=== PATIENT | female | born 1990 | race Two or more races ===

== ENCOUNTER 2021-08-01 02:05 | Emergency (ER) | payer OTHER ==
[~2021-08-01] VITALS: Ht 162.6 cm; Wt 52.2 kg
[2021-08-01] MEDS ORDERED: ZOFRAN8 MG PO (05:53)
[2021-08-01] MEDS ORDERED: PEPCID AC20 MG PO (05:53)
== END 2021-08-01 06:03 | disposition home or self-care (01) ==
LOC: ER 02:05 → EDBD 02:25 → ER 02:25
DX: K52.89 Other specified noninfective gastroenteritis and colitis (principal)

== ENCOUNTER 2022-01-11 11:50 | Outpatient (CLI) | payer OTHER ==
[~2022-01-11 11:50] MED LIST: PEPCID AC20 MG PO; ZOFRAN8 MG PO
== END 2022-01-11 13:14 | disposition home or self-care (01) ==
LOC: LAB 11:50
PROVIDERS: ATTEND Internal Medicine Hematology & Oncology
DX: D50.8 Other iron deficiency anemias (principal); I10 Essential (primary) hypertension; D51.3 Other dietary vitamin B12 deficiency anemia; D68.8 Other specified coagulation defects

== ENCOUNTER 2022-03-09 13:01 | Outpatient (CLI) | payer OTHER | END 2022-03-09 13:08 | disposition home or self-care (01) | LOC: SONOGRAMA 13:01 | PROVIDERS: ATTEND Internal Medicine Hematology & Oncology | DX: E04.2 Nontoxic multinodular goiter (principal); D68.32 Hemorrhagic disorder due to extrinsic circulating anticoagulants; E56.1 Deficiency of vitamin K; D51.3 Other dietary vitamin B12 deficiency anemia; J30.9 Allergic rhinitis, unspecified ==

== ENCOUNTER 2022-03-17 10:21 | Outpatient (CLI) | payer OTHER | END 2022-03-17 14:13 | disposition home or self-care (01) | LOC: LAB 10:21 | PROVIDERS: ATTEND Internal Medicine Hematology & Oncology | DX: D50.8 Other iron deficiency anemias (principal); D68.32 Hemorrhagic disorder due to extrinsic circulating anticoagulants; E56.1 Deficiency of vitamin K; D51.3 Other dietary vitamin B12 deficiency anemia; J30.9 Allergic rhinitis, unspecified ==

== ENCOUNTER → 2022-05-25 11:32 | Outpatient (CLI) | payer OTHER | END | disposition home or self-care (01) | LOC: LAB 11:32 | PROVIDERS: ATTEND Internal Medicine Hematology & Oncology | DX: D68.62 Lupus anticoagulant syndrome (principal); E56.1 Deficiency of vitamin K; D51.3 Other dietary vitamin B12 deficiency anemia; J30.9 Allergic rhinitis, unspecified; D50.8 Other iron deficiency anemias; R79.9 Abnormal finding of blood chemistry, unspecified; I10 Essential (primary) hypertension; R74.02 Elevation of levels of lactic acid dehydrogenase [LDH]; K76.89 Other specified diseases of liver; D51.8 Other vitamin B12 deficiency anemias; D68.8 Other specified coagulation defects; D69.1 Qualitative platelet defects ==

== ENCOUNTER → 2022-06-17 09:57 | Outpatient (CLI) | payer OTHER | END | disposition home or self-care (01) | LOC: LAB 09:57 | PROVIDERS: ATTEND Internal Medicine Rheumatology | DX: M06.89 Other specified rheumatoid arthritis, multiple sites (principal); R76.8 Other specified abnormal immunological findings in serum; M32.9 Systemic lupus erythematosus, unspecified; M35.00 Sjogren syndrome, unspecified; L94.1 Linear scleroderma ==

== ENCOUNTER 2022-09-30 08:58 | Outpatient (CLI) | payer OTHER | END 2022-09-30 09:03 | disposition home or self-care (01) | LOC: LAB 08:58 | PROVIDERS: ATTEND Internal Medicine Hematology & Oncology | DX: D50.8 Other iron deficiency anemias (principal); R79.9 Abnormal finding of blood chemistry, unspecified; I10 Essential (primary) hypertension; R74.02 Elevation of levels of lactic acid dehydrogenase [LDH]; K76.89 Other specified diseases of liver; D68.8 Other specified coagulation defects; E56.1 Deficiency of vitamin K; D69.1 Qualitative platelet defects; E55.9 Vitamin D deficiency, unspecified; D68.32 Hemorrhagic disorder due to extrinsic circulating anticoagulants; D51.3 Other dietary vitamin B12 deficiency anemia; J30.9 Allergic rhinitis, unspecified ==

== ENCOUNTER → 2023-05-15 08:49 | Outpatient (CLI) | payer OTHER ==
[2023-05-15 10:09] LABS: HEMATOCRIT 37.9 % (36.0-45.00); HEMOGLOBIN 12.5 g/dL (12.0-15.00); MEAN CORPUSCULAR HEMOGLOBIN 28.7 pg (27.00-32.0); MEAN CORPUSCULAR HGB CONC 32.9 g/dl (32.0-36.0); PLATELET COUNT 287 K/uL (150-450); RED BLOOD COUNT 4.36 M/uL (4.00-6.00); RED CELL DISTRIBUTION WIDTH 13.4 % (11.5-14.5)
[2023-05-15 10:27] LABS: COL EPI 83 SECONDS (82-175)
[2023-05-15 10:43] LABS: INR 0.95; PARTIAL THROMBOPLASTIN TIME 25.6 SECONDS (22.0-34.0)
[2023-05-15 11:00] LABS: ALBUMIN 3.9 gm/dL (3.4-5.0); BILIRUBIN TOTAL 0.56 mg/dL (0.3-1.2); CREATININE SERUM 0.77 mg/dL (0.55-1.02); GFR 86.33; GLOBULINA 3.8 G/DL (2.4-3.5); POTASSIUM 4.04 mEq/L (3.5-5.1); TOTAL PROTEIN 7.7 gm/dL (6.4-8.2)
[2023-05-15 13:10] LABS: MANUAL PLATELET COUNT 470
[2023-05-15 13:13] LABS: PLATELET ESTIMATE INCREASED (NORMAL)
[2023-05-15 13:56] LABS: FOLIC ACID 16.92 ng/ml (4.78-20); VITAMIN D3 25 HYDROXY 21.97 ng/ml (30-120)
== END | disposition home or self-care (01) ==
LOC: LAB 08:49
PROVIDERS: ATTEND Internal Medicine Hematology & Oncology
DX: D51.3 Other dietary vitamin B12 deficiency anemia (principal); D68.32 Hemorrhagic disorder due to extrinsic circulating anticoagulants; E56.1 Deficiency of vitamin K; J30.9 Allergic rhinitis, unspecified; L94.0 Localized scleroderma [morphea]

== ENCOUNTER 2023-12-27 07:29 | Outpatient (CLI) | payer OTHER ==
[2023-12-27 08:23] LABS: HEMATOCRIT 36.7 % (36.0-45.00); HEMOGLOBIN 12.1 g/dL (12.0-15.00); MEAN CELL VOLUME 86.2 fL (80.00-100.00); MEAN CORPUSCULAR HEMOGLOBIN 28.4 pg (27.00-32.0); PLATELET COUNT 314 K/uL (150-450); RED BLOOD COUNT 4.26 M/uL (4.00-6.00); RED CELL DISTRIBUTION WIDTH 13.9 % (11.5-14.5)
[2023-12-27 08:39] LABS: INR 0.98; PARTIAL THROMBOPLASTIN TIME 28.3 SECONDS (22.0-34.0); PROTHROMBIN TIME 10.7 SECONDS (9.0-11.5)
[2023-12-27 08:46] LABS: COL EPI 126 SECONDS (82-175)
[2023-12-27 09:13] LABS: BILIRUBIN TOTAL 0.7 mg/dL (0.3-1.2); CALCIUM 9.4 mg/dL (8.5-10.1); CREATININE SERUM 0.71 mg/dL (0.55-1.02); GFR 94.23; GLOBULINA 4.1 G/DL (2.4-3.5); POTASSIUM 4.14 mEq/L (3.5-5.1); TOTAL PROTEIN 8.1 gm/dL (6.4-8.2)
[2023-12-27 12:22] LABS: MANUAL PLATELET COUNT 596
[2023-12-27 12:24] LABS: PLATELET ESTIMATE INCREASED (NORMAL)
[2023-12-27 13:42] LABS: FOLIC ACID 17.85 ng/ml (4.78-20); VITAMIN D3 25 HYDROXY 30.27 ng/ml (30-120)
[2023-12-29 17:10] LABS: FACTOR VIII ACTIVITY 58 % (56-140); VON WILLERBRAND ACTIVITY 35 % (50-200); VON WILLERBRAND ANTIGEN 51 % (50-200)
== END 2023-12-27 07:37 | disposition home or self-care (01) ==
LOC: LAB 07:29
PROVIDERS: ATTEND Internal Medicine Hematology & Oncology
DX: D50.8 Other iron deficiency anemias (principal); D51.3 Other dietary vitamin B12 deficiency anemia; D68.32 Hemorrhagic disorder due to extrinsic circulating anticoagulants; E56.1 Deficiency of vitamin K; J30.9 Allergic rhinitis, unspecified; L94.0 Localized scleroderma [morphea]

== ENCOUNTER 2024-01-11 07:45 | Outpatient (CLI) | payer OTHER | END 2024-01-11 07:47 | disposition home or self-care (01) | LOC: SONOGRAMA 07:45 | DX: N64.51 Induration of breast (principal); N63.10 Unspecified lump in the right breast, unspecified quadrant; N63.24 Unspecified lump in the left breast, lower inner quadrant ==

== ENCOUNTER 2024-06-25 07:32 | Outpatient (CLI) | payer OTHER ==
[2024-06-25 08:41] LABS: HEMATOCRIT 35.8 % (36.0-45.00); HEMOGLOBIN 11.9 g/dL (12.0-15.00); MEAN CELL VOLUME 86.9 fL (80.00-100.00); MEAN CORPUSCULAR HGB CONC 33.4 g/dl (32.0-36.0); PLATELET COUNT 290 K/uL (150-450); RED BLOOD COUNT 4.11 M/uL (4.00-6.00)
[2024-06-25 08:49] LABS: ERYTHROCYTE SEDIMENTATION RATE 21 mm/hr
[2024-06-25 08:56] LABS: URINE APPEARANCE Clear; URINE BILIRRUBIN Negative (NEGATIVE); URINE BLOOD Negative; URINE COLOR Yellow; URINE GLUCOSE Negative (NEGATIVE); URINE KETONE Negative (NEGATIVE); URINE LEUKOCYTE Small; URINE NITRATE Negative; URINE PROTEIN Negative (NEGATIVE); URINE UROBILINOGEN 0.2 E.U./dl
[2024-06-25 08:57] LABS: URINE BACTERIA 3523.8 uL (0.0-1933); URINE EPITHELIAL CELLS 61.7 uL (0.0-38.8); URINE RBC 22.8 uL (0.0-20.8); URINE WBC 89.6 uL (0.0-23.2)
[2024-06-25 08:59] LABS: URINE CAST 0.14 uL (0.0-1.40)
[2024-06-25 09:33] LABS: ALKALINE PHOSPHATASE 49 U/L (50-136); ALT/SGPT 20 U/L (12-78); ANION GAP 6 (10.0-20.0); AST/SGOT 13 U/L (15-37); BILIRUBIN TOTAL 0.52 mg/dL (0.3-1.2); BLOOD UREA NITROGEN 11 mg/dL (7-18); BUN CREA RATIO 17 (7.0-25.0); CALCIUM 9.1 mg/dL (8.5-10.1); CARBON DIOXIDE 31 mEq/L (21-32); CHLORIDE 106 mmol/L (98-107); CHOL HDL RATIO 1.9 (0-5.0); CHOLESTEROL 158 mg/dL (0-200); CREATININE SERUM 0.63 mg/dL (0.55-1.02); FREE TRIODOTIRONINE 3.38 pg/ml (2.18-3.98); GFR 108.17; GLOBULINA 4.1 G/DL (2.4-3.5); GLUCOSE FASTING 85 mg/dL (65-100); HDL 82 mg/dl (40-60); LDL 66 mg/dl (0-130); OSMOLALITY SERUM 276 MOSM/KG (275-295); POTASSIUM 3.99 mEq/L (3.5-5.1); SODIUM 139 mmol/L (136-145); TOTAL PROTEIN 8.1 gm/dL (6.4-8.2); TRIGLYCERIDES 50 mg/dL (0-150); VLDL 10 (0-39)
[2024-06-25 09:34] LABS: C-REACTIVE PROTEIN < 0.29 MG/DL (0.00-0.29)
[2024-06-25 10:55] LABS: T3 TOTAL 1.5 ng/ml (0.846-2.02); VITAMIN D3 25 HYDROXY 19.79 ng/ml (30-120)
== END 2024-06-25 07:38 | disposition home or self-care (01) ==
LOC: LAB 07:32
PROVIDERS: ATTEND Internal Medicine
DX: L94.0 Localized scleroderma [morphea] (principal); D68.00 Von Willebrand disease, unspecified; E55.9 Vitamin D deficiency, unspecified; Z13.1 Encounter for screening for diabetes mellitus; Z13.220 Encounter for screening for lipoid disorders; Z00.00 Encounter for general adult medical examination without abnormal findings; Z12.11 Encounter for screening for malignant neoplasm of colon; Z13.29 Encounter for screening for other suspected endocrine disorder

== ENCOUNTER 2024-06-27 07:47 | Outpatient (CLI) | payer OTHER ==
[2024-06-27 10:09] LABS: ob NEGATIVE (NEGATIVE)
== END 2024-06-27 07:50 | disposition home or self-care (01) ==
LOC: LAB 07:47
PROVIDERS: ATTEND Internal Medicine
DX: L94.0 Localized scleroderma [morphea] (principal); D68.00 Von Willebrand disease, unspecified; E55.9 Vitamin D deficiency, unspecified; Z13.1 Encounter for screening for diabetes mellitus; Z13.220 Encounter for screening for lipoid disorders; Z00.00 Encounter for general adult medical examination without abnormal findings; Z12.11 Encounter for screening for malignant neoplasm of colon; Z13.29 Encounter for screening for other suspected endocrine disorder

== ENCOUNTER 2024-11-15 10:17 | Outpatient (CLI) | payer OTHER ==
[2024-11-15 11:37] LABS: COVID-19 AG NEGATIVE (NEGATIVE)
== END 2024-11-15 10:20 | disposition home or self-care (01) ==
LOC: LAB 10:17
PROVIDERS: ATTEND Preventive Medicine Occupational Medicine
DX: Z20.828 Contact with and (suspected) exposure to other viral communicable diseases (principal); J11.1 Influenza due to unidentified influenza virus with other respiratory manifestations

== ENCOUNTER 2024-12-05 07:42 | Outpatient (CLI) | payer OTHER ==
[2024-12-05 08:41] LABS: URINE APPEARANCE Cloudy; URINE BILIRRUBIN Negative (NEGATIVE); URINE BLOOD Negative; URINE COLOR Yellow; URINE GLUCOSE Negative (NEGATIVE); URINE KETONE Trace (NEGATIVE); URINE LEUKOCYTE Negative; URINE NITRATE Negative; URINE PROTEIN Negative (NEGATIVE); URINE UROBILINOGEN 0.2 E.U./dl
[2024-12-05 08:45] LABS: URINE BACTERIA 1006.6 uL (0.0-1933); URINE EPITHELIAL CELLS 20.1 uL (0.0-38.8); URINE RBC 11.1 uL (0.0-20.8); URINE WBC 4.9 uL (0.0-23.2)
[2024-12-05 08:48] LABS: BASO % 0.6 % (0.1-1.2); EOS # 0.83 (0.04-0.54); EOS % 8.0 % (0.7-7.0); LYMPH # 2.01 (1.18-3.74); LYMPH % 19.4 % (19.3-53.1); MEAN PLATELET VOLUME 12.50 fl (9.4-12.4); MONO # 0.74 (0.24-0.82); MONO % 7.1 % (4.7-12.5); NEUT # 6.71 (1.56-6.13); NEUT % 64.7 % (34.0-71.1); RED CELL DISTRIBUTION WIDTH 13.2 % (11.6-14.4)
[2024-12-05 09:04] LABS: INR 0.98
[2024-12-05 09:15] LABS: URINE CAST 0.00 uL (0.0-1.40)
[2024-12-05 09:15] LABS: ALT/SGPT 40 U/L (12-78); AST/SGOT 22 U/L (15-37); BILIRUBIN TOTAL 0.76 mg/dL (0.3-1.2); BUN CREA RATIO 15 (7.0-25.0); CHOL HDL RATIO 2.0 (0-5.0); CREATININE SERUM 0.72 mg/dL (0.55-1.02); FE 165.0 ug/dl (50-170); GFR 92.18; GLOBULINA 4.5 G/DL (2.4-3.5); GLUCOSE FASTING 96 mg/dL (65-100); HDL 86 mg/dl (40-60); LDH 153 U/L (84-246); LDL 66 mg/dl (0-130); OSMOLALITY SERUM 279 MOSM/KG (275-295); T4 TOTAL 7.43 UG/DL (4.8-13.9); TSH 1.530 uIU/mL (0.358-3.74); VLDL 18 (0-39)
[2024-12-05 09:36] LABS: COL EPI 95 SECONDS (82-175)
[2024-12-05 10:49] LABS: ob POSITIVE (NEGATIVE)
[2024-12-05 11:20] LABS: FOLIC ACID > 20.00 ng/ml (4.78-20); VITAMIN D3 25 HYDROXY 76.81 ng/ml (30-120)
[2024-12-08 19:08] LABS: FACTOR VIII ACTIVITY 155 % (56-140); VON WILLERBRAND ACTIVITY 110 % (50-200); VON WILLERBRAND ANTIGEN 101 % (50-200)
== END 2024-12-05 07:48 | disposition home or self-care (01) ==
LOC: LAB 07:42
PROVIDERS: ATTEND Internal Medicine Hematology & Oncology
DX: R79.9 Abnormal finding of blood chemistry, unspecified (principal); L94.0 Localized scleroderma [morphea]; E55.9 Vitamin D deficiency, unspecified; Z13.1 Encounter for screening for diabetes mellitus; Z13.220 Encounter for screening for lipoid disorders; Z00.00 Encounter for general adult medical examination without abnormal findings; Z12.11 Encounter for screening for malignant neoplasm of colon; Z13.29 Encounter for screening for other suspected endocrine disorder; D50.8 Other iron deficiency anemias; I10 Essential (primary) hypertension; R74.02 Elevation of levels of lactic acid dehydrogenase [LDH]; K76.89 Other specified diseases of liver; D51.8 Other vitamin B12 deficiency anemias; D68.00 Von Willebrand disease, unspecified; D68.8 Other specified coagulation defects; D69.1 Qualitative platelet defects; D68.32 Hemorrhagic disorder due to extrinsic circulating anticoagulants; D51.3 Other dietary vitamin B12 deficiency anemia; E56.1 Deficiency of vitamin K; J30.9 Allergic rhinitis, unspecified

== ENCOUNTER 2025-01-29 13:00 | Outpatient (CLI) | payer OTHER | END 2025-01-29 13:10 | disposition home or self-care (01) | LOC: PPH VACUNA 13:00 | PROVIDERS: ATTEND Emergency Medicine Pediatric Emergency Medicine | DX: Z23 Encounter for immunization (principal) ==

== ENCOUNTER 2025-04-08 07:30 | Outpatient (CLI) | payer OTHER | END 2025-04-08 07:35 | disposition home or self-care (01) | LOC: MRI 07:30 | PROVIDERS: ATTEND Internal Medicine | DX: M25.562 Pain in left knee (principal) | CPT/HCPCS: 73721 ==